=== PATIENT | male | born 1965 | race African-American/Black ===

== ENCOUNTER 2019-08-11 13:16 | Inpatient (IN) | payer MEDICARE, MEDICAID ==
[~2019-08-11] VITALS: Ht 180.3 cm; Wt 111.7 kg
[2019-08-11] MEDS: LORazepam 1 MG TABLET PO ONE ×2 (14:53→15:27)
[2019-08-11] MEDS: HALOPERIDOL 5 MG TABLET PO ONE ×2 (14:53→15:27)
[2019-08-11 15:10] LABS: BASOPHILS % (AUTO) 0.5 % (0.0-2.0); EOSINOPHILS % (AUTO) 0.5 % (1.0-6.0); HEMATOCRIT 40.2 % (41-53); HEMOGLOBIN 13.2 g/dL (13.5-17.5); LYMPHOCYTES # (AUTO) 1.7 K/uL (1.0-4.8); LYMPHOCYTES % (AUTO) 35.9 % (22.0-44.0); MEAN CORPUSCULAR HEMOGLOBIN 28.5 pg (26.0-34.0); MEAN CORPUSCULAR HGB CONC 32.9 G/dL (31.0-37.0); MEAN CORPUSCULAR VOLUME 87 fL (80-100); MONOCYTES # (AUTO) 0.3 K/uL (0.1-1.0); MONOCYTES % (AUTO) 7.1 % (2.0-9.0); NEUTROPHILS # (AUTO) 2.6 K/uL (1.8-7.7); PLATELET COUNT (AUTO) 235 K/uL (150-450); RED BLOOD CELL COUNT(AUTO) 4.64 MIL/uL (4.50-5.90); RED CELL DISTRIBUTION WIDTH 14.4 % (11.5-14.5)
[2019-08-11 15:32] LABS: ANION GAP 11 mmol/L (8-16); CALCIUM, TOTAL 9.4 mg/dL (8.8-10.5); CARBON DIOXIDE 27 mmol/L (22-29); CHLORIDE 110 mmol/L (98-107); CREATININE 0.92 mg/dL (0.60-1.30); GLOMERULAR FILTR. RATE CALC > 60 mL/min (>60); GLUCOSE,RANDOM 96 mg/dL (70-110); POTASSIUM 4.6 mmol/L (3.5-5.1); SODIUM SERUM 148 mmol/L (136-145); UREA NITROGEN, BLOOD 11 mg/dL (7-18)
[2019-08-11 15:38] LABS: ALANINE AMINOTRANSFERASE 28 U/L (12-78); ALBUMIN 4.5 g/dL (3.4-5.0); ALKALINE PHOSPHATASE 90 U/L (46-116); ASPARTATE AMINOTRANSFERASE 23 U/L (15-37); BILIRUBIN,TOTAL 0.3 mg/dL (0.1-1.0); TOTAL PROTEIN, SERUM 8.4 g/dL (6.4-8.2)
[2019-08-11] MEDS ORDERED: HALOPERIDOL 5 MG TABLET PO PRN (16:00)
[2019-08-11] MEDS ORDERED: ZOLPIDEM TARTRATE 10 MG TABLET PO PRN (16:00)
[2019-08-11 19:05] LABS: AMPHET/METH SCREEN,URINE NEGATIVE (NEGATIVE); APPEARANCE,URINE CLEAR (CLEAR); BARBITURATE SCREEN, URINE NEGATIVE (NEGATIVE); BENZODIAZEPINES SCREEN,URINE NEGATIVE (NEGATIVE); BILIRUBIN,URINE NEGATIVE (NEGATIVE); CANNABINOID SCREEN,URINE NEGATIVE (NEGATIVE); COCAINE SCREEN,URINE NEGATIVE (NEGATIVE); GLUCOSE, URINE (UA) NEGATIVE (NEGATIVE); KETONES,URINE NEGATIVE (NEGATIVE); LEUKOCYTE ESTERASE ,URINE NEGATIVE (NEGATIVE); METHADONE SCREEN, URINE NEGATIVE (NEGATIVE); NITRATE,URINE NEGATIVE (NEGATIVE); OCCULT BLOOD,URINE NEGATIVE (NEGATIVE); OPIATE SCREEN,URINE NEGATIVE (NEGATIVE); PROTEIN,URINE NEGATIVE (NEGATIVE); UROBILINOGEN,URINE 0.2 mg/dL (<=1.0)
[2019-08-11 19:12] LABS: PHENCYCLIDINE SCREEN,URINE NEGATIVE (NEGATIVE)
[2019-08-11] MEDS ORDERED: MAGNESIUM HYDROXIDE SUSPENSION 30 ML UDCUP PO PRN (19:45)
[2019-08-11] MEDS ORDERED: PETROLATUM,WHITE 28 GM JELLY TP PRN (19:45)
[2019-08-11] MEDS ORDERED: IBUPROFEN 400 MG TABLET PO PRN (19:45)
[2019-08-11] MEDS ORDERED: ALBUTEROL SULFATE HFA 90 MCG/PUFF 8 GM INHALER IH PRN (19:45)
[2019-08-11] MEDS ORDERED: ACETAMINOPHEN 325 MG TABLET PO PRN (19:45)
[2019-08-11] MEDS ORDERED: MAG HYDROX/AL HYDROX/SIMETH ES 30 ML SUSPENSION UDCUP PO PRN (19:45)
[2019-08-11] MEDS ORDERED: ONDANSETRON HCL 4 MG TABLET PO PRN (19:45)
[2019-08-11] MEDS ORDERED: CloNIDine HCL 0.1 MG TABLET PO PRN (19:45)
[2019-08-11] MEDS ORDERED: NICOTINE 14 MG/24 HOUR PATCH TD PRN (19:45)
[2019-08-11] MEDS ORDERED: DOCUSATE SODIUM 100 MG CAPSULE PO PRN (19:45)
[2019-08-11] MEDS ORDERED: GuaiFENesin/D-METHORPHAN [SUGAR-FREE] 200-20MG/10 ML SYRUP UDCUP PO PRN (19:45)
[2019-08-11] MEDS ORDERED: LOPERAMIDE HCL 2 MG CAPSULE PO PRN (19:45)
[2019-08-11 20:45] VITALS: BP 131/76
[2019-08-12 01:04] VITALS: BP 121/73
[2019-08-12 08:31] LABS: BASOPHILS % (AUTO) 0.7 % (0.0-2.0); EOSINOPHILS % (AUTO) 1.7 % (1.0-6.0); HEMATOCRIT 38.7 % (41-53); HEMOGLOBIN 12.6 g/dL (13.5-17.5); LYMPHOCYTES # (AUTO) 1.8 K/uL (1.0-4.8); LYMPHOCYTES % (AUTO) 42.5 % (22.0-44.0); MEAN CORPUSCULAR HEMOGLOBIN 28.4 pg (26.0-34.0); MEAN CORPUSCULAR HGB CONC 32.7 G/dL (31.0-37.0); MEAN CORPUSCULAR VOLUME 87 fL (80-100); MONOCYTES # (AUTO) 0.4 K/uL (0.1-1.0); MONOCYTES % (AUTO) 8.6 % (2.0-9.0); NEUTROPHILS # (AUTO) 1.9 K/uL (1.8-7.7); NEUTROPHILS % (AUTO) 46.5 % (40.0-70.0); PLATELET COUNT (AUTO) 225 K/uL (150-450); RED BLOOD CELL COUNT(AUTO) 4.45 MIL/uL (4.50-5.90); RED CELL DISTRIBUTION WIDTH 14.4 % (11.5-14.5)
[2019-08-12 08:46] LABS: CHOL/HDL RATIO 3.3 (4.2-7.3)
[2019-08-12 09:14] VITALS: BP 124/75
[2019-08-12] MEDS: DIVALPROEX SODIUM 500 MG DR TABLET PO SCH ×2 (13:35→20:53)
[2019-08-12] MEDS: BusPIRone HCL 5 MG TABLET PO SCH ×2 (13:35→20:53)
[2019-08-12 16:39] VITALS: BP 141/84
[2019-08-12] MEDS: QUEtiapine FUMARATE 200 MG TABLET PO SCH (20:53)
[2019-08-13 00:07] VITALS: BP 123/93
[2019-08-13] MEDS: DIVALPROEX SODIUM 500 MG DR TABLET PO SCH ×2 (08:26→21:00)
[2019-08-13] MEDS: BusPIRone HCL 5 MG TABLET PO SCH ×2 (08:26→21:00)
[2019-08-13 09:15] VITALS: BP 105/66
[2019-08-13 16:00] VITALS: BP 126/87
[2019-08-13] MEDS: QUEtiapine FUMARATE 200 MG TABLET PO SCH (21:00)
[2019-08-14] MEDS: DIVALPROEX SODIUM 500 MG DR TABLET PO SCH ×2 (08:15→22:01)
[2019-08-14] MEDS: BusPIRone HCL 5 MG TABLET PO SCH ×2 (08:16→22:01)
[2019-08-14 08:24] VITALS: BP 139/88
[2019-08-14] MEDS: LORazepam 2 MG TABLET PO PRN (08:35)
[2019-08-14 16:23] VITALS: BP 125/79
[2019-08-14] MEDS: QUEtiapine FUMARATE 200 MG TABLET PO SCH (22:01)
[2019-08-15 06:41] VITALS: BP 132/81
[2019-08-15 08:11] VITALS: BP 134/100
[2019-08-15] MEDS: DIVALPROEX SODIUM 500 MG DR TABLET PO SCH ×2 (08:42→21:49)
[2019-08-15] MEDS: BusPIRone HCL 5 MG TABLET PO SCH ×2 (08:42→21:49)
[2019-08-15 16:06] VITALS: BP 125/78
[2019-08-15] MEDS: LORazepam 2 MG TABLET PO PRN (17:14)
[2019-08-15] MEDS: QUEtiapine FUMARATE 200 MG TABLET PO SCH (21:49)
[2019-08-16 04:13] VITALS: BP 127/90
[2019-08-16 08:14] VITALS: BP 122/76
[2019-08-16] MEDS: DIVALPROEX SODIUM 500 MG DR TABLET PO SCH (08:50)
[2019-08-16] MEDS: BusPIRone HCL 5 MG TABLET PO SCH (08:50)
[2019-08-16] MEDS ORDERED: BUSP5TAB20 PO (12:50)
[2019-08-16] MEDS ORDERED: DIVA-112 PO (12:53)
[2019-08-16] MEDS ORDERED: QUET200T PO (12:53)
== END 2019-08-16 14:45 | disposition home or self-care (01) | DRG 885 ==
LOC: EMS 13:17 → B2S 17:29
PROVIDERS: ADMIT Psychiatry & Neurology Child & Adolescent Psychiatry; ATTEND Psychiatry & Neurology Child & Adolescent Psychiatry
DX: F25.1 Schizoaffective disorder, depressive type (principal); R45.851 Suicidal ideations; E87.0 Hyperosmolality and hypernatremia; F43.10 Post-traumatic stress disorder, unspecified; I10 Essential (primary) hypertension; F32.9 Major depressive disorder, single episode, unspecified; G89.29 Other chronic pain; K21.9 Gastro-esophageal reflux disease without esophagitis; M54.30 Sciatica, unspecified side; D64.9 Anemia, unspecified; D72.819 Decreased white blood cell count, unspecified; Z91.5 Personal history of self-harm
CPT/HCPCS: G0480